=== PATIENT | female | born 1980 | race Caucasian/White ===

== ENCOUNTER 2023-04-23 10:51 | Emergency (ER) | payer BC ==
[2023-04-23] MEDS ORDERED: Meclizine 25 MG Tab PO ONE (11:35)
== END 2023-04-23 11:55 | disposition home or self-care (01) ==
LOC: JD.ED 10:51
DX: H81.12 Benign paroxysmal vertigo, left ear (principal); F17.210 Nicotine dependence, cigarettes, uncomplicated; Z88.8 Allergy status to other drugs, medicaments and biological substances
CPT/HCPCS: 99283; A9270